=== PATIENT | female | born 1960 | race Caucasian/White ===

== ENCOUNTER 2018-05-14 22:29 | Observation (INO) ==
--- NOTE | 2018-05-14 23:16 | XR ---
EXAM DATE: 05/14/2018 11:13 PM EST AGE/SEX: 57 years / Female INDICATIONS: Chest pain. CLINICAL DATA: This is the patient's initial encounter. Patient reports that signs and symptoms have been present for 1 day and indicates a pain score of 5/10. MEDICAL/SURGICAL HISTORY: Hypertension. None. COMPARISON: No prior exams available for comparison. FINDINGS: Portable AP view of the chest demonstrates a normal-sized cardiac silhouette. No effusion, consolidat ion, or pneumothorax is identified. The bones and soft tissues demonstrate no acute finding. There is calcification of the aorta. EKG lines overlie the patient. CONCLUSION: No acute cardiopulmonary abnormality is identified. Electronically signed by: Shukri Burton MD 05/14/2018 11:15 PM EST
[2018-05-14 23:28] LABS: Baso % (Auto) 0.6 % (0.0-2.0); Eos # (Auto) 0.1 th/mm3 (0.0-0.4); Eos % (Auto) 1.8 % (0.0-4.0); Hematocrit 42.3 % (35.0-46.0); Hemoglobin 14.3 gm/dL (11.6-15.3); Lymph # (Auto) 3.1 th/mm3 (1.0-4.8); Mean Corpuscular HGB Conc 33.9 % (32.0-36.0); Mean Corpuscular Hemoglobin 30.3 pg (27.0-34.0); Mean Corpuscular Volume 89.5 fL (80.0-100.0); Mean Platelet Volume 9.9 fL (7.0-11.0); Mono # (Auto) 0.4 th/mm3 (0.0-0.9); Mono % (Auto) 6.3 % (0.0-8.0); Neut # (Auto) 2.6 th/mm3 (1.8-7.7); Neut % (Auto) 42.3 % (16.0-70.0); Platelet Count 232 th/mm3 (150-450); Red Blood Count 4.72 mil/mm3 (4.00-5.30); Red Cell Distribution Width 13.3 % (11.6-17.2); White Blood Count 6.3 th/mm3 (4.0-11.0)
[2018-05-14] MEDS ORDERED: Morphine Sulfate Inj 2 MG/ML Vial IV.PUSH ONE (23:49)
[2018-05-15 00:42] LABS: Alanine Aminotransferase 59 U/L (10-53); Albumin 3.5 g/dL (3.4-5.0); Anion Gap 5 meq/L (5-15); Aspartate Aminotransferase 23 U/L (15-37); Blood Urea Nitrogen 10 mg/dL (7-18); Calcium 8.4 mg/dL (8.5-10.1); Carbon Dioxide 27.5 meq/L (21.0-32.0); Chloride 111 meq/L (98-107); Glomerular Filtration Rate 88 mL/min (>89); Glucose,Random 102 mg/dL (74-106); Potassium 3.9 meq/L (3.5-5.1); Sodium 143 meq/L (136-145)
[2018-05-15 00:48] LABS: Total Protein 6.5 g/dL (6.4-8.2)
[2018-05-15 00:49] LABS: Alkaline Phosphatase 90 U/L (45-117)
--- NOTE | 2018-05-15 01:29 | ED ---
HPI General Chief Complaint: Chest Pain Stated Complaint: Chest Pain Time Seen by Provider: 05/14/18 22:54 Source: patient Mode of arrival: ambulatory Limitations: no limitations History of Present Illness HPI narrative: 57-year-old female came to the emergency room brought by EMS with history of chest pain that has been on and off for past 1 week. Patient also says that she has been experiencing some anxiety, shortness of breath and dizziness associated with it. Patient describes the chest pain substernal radiating to the back between her shoulder blades and over to both shoulders. She took 2 baby aspirins before calling 911 and received 2 more baby aspirins by EMS. She was given 2 sublingual nitro spray that relieved her chest pain completely. Patient seems anxious as she is telling me the history. Vital signs are stable. She has a significant family history of coronary artery disease. Her the mother had a heart attack when she was about the patient's age and her father has history of coronary artery disease. Patient had a stress test long time back that was negative. Currently she has history of hypertension and high cholesterol. She is not a smoker. No aggravating or relieving symptoms identified for the pain. Related Data Home Medications Medication Instructions Recorded Confirmed lorazepam 0.5 mg PO DAILY 05/14/18 05/14/18 metoprolol tartrate 12.5 mg PO BID 05/14/18 05/14/18 nifedipine 30 mg PO DAILY 05/14/18 05/14/18 pantoprazole 40 mg PO DAILY 05/14/18 05/14/18 simvastatin 40 mg PO QPM 05/14/18 05/14/18 Previous Rx's Medication Instructions Recorded ranitidine HCl [Acid Ip Counsel 150 mg PO DAILY #30 tab 05/15/18 (ranitidine)] Allergies Allergy/AdvReac Type Severity Reaction Status Date / Time Penicillins Allergy Swelling Verified 05/14/18 22:46 Sulfa (Sulfonamide Allergy Swelling Verified 05/14/18 22:46 Antibiotics) Review of Systems ROS: all other systems reviewed are negative [facility] Medical History Medical History Anxiety (Acute) High cholesterol (Acute) Hx of hysterectomy (Acute) Hypertension (Acute) Surgical History Surgical History Hx of cholecystectomy (Acute) Social History Social History Substance History: No History of Abuse Second Hand Smoke Exposure: No Smoking Status: Former smoker Tobacco Type: Cigarettes How Often Do You Have a Drink Containing Alcohol: 2 to 3 times a week Recent Travel in [facility] within the Last 8 Weeks: No Recent Out of Country Travel within the Last 8 Weeks: Yes Immunization History Tetanus Immunization: Unsure Exam Narrative Exam Narrative: GENERAL: Awake, alert, anxious, tearful, moderate distress SKIN: Focused skin assessment warm/dry. HEAD: Atraumatic. Normocephalic. EYES: Pupils equal and round. No scleral icterus. No injection or drainage. ENT: No nasal bleeding or discharge. Mucous membranes pink and moist. NECK: Trachea midline. No JVD. CARDIOVASCULAR: Regular rate and rhythm. No murmur appreciated. RESPIRATORY: No accessory muscle use. Clear to auscultation. Breath sounds equal bilaterally. GASTROINTESTINAL: Abdomen soft, non-tender, nondistended. Hepatic and splenic margins not palpable. MUSCULOSKELETAL: No obvious deformities. No clubbing. No cyanosis. No edema. NEUROLOGICAL: Awake and alert. No obvious cranial nerve deficits. Motor grossly within normal limits. Normal speech. PSYCHIATRIC: Appropriate mood and affect; insight and judgment normal. Course Initial Documented Vital Signs Temperature 98.4 F 05/14/18 22:36 Pulse Rate 71 05/14/18 22:36 Respiratory Rate 20 05/14/18 22:36 Blood Pressure 149/77 H 05/14/18 22:36 Pulse Oximetry 98 05/14/18 22:36 Last Documented Vital Signs Temperature 97.8 F 05/15/18 11:54 Pulse Rate 70 05/15/18 11:54 Respiratory Rate 16 05/15/18 11:54 Blood Pressure 127/70 05/15/18 11:54 Pulse Oximetry 97 05/15/18 11:54 Medical Decision Making MDM Narrative Medical decision making narrative: 1 AM blood test results are back and within acceptable limits. D-dimer and troponin is negative. Patient will be admitted to the chest pain center to rule out ACS. I discussed the results and the plan with the patient and she is agreeable to the admission. Medical Screen Exam Complete: Yes Emergency Medical Condition: Yes Lab Data Result diagrams: 05/14/18 23:00 05/14/18 00:05 Lab Results 05/14/18 05/14/18 05/14/18 Range/Units 00:05 23:00 23:50 WBC 6.3 (4.0-11.0) th/mm3 RBC 4.72 (4.00-5.30) mil/mm3 Hgb 14.3 (11.6-15.3) gm/dL Hct 42.3 (35.0-46.0) % MCV 89.5 (80.0-100.0) fL MCH 30.3 (27.0-34.0) pg MCHC 33.9 (32.0-36.0) % RDW 13.3 (11.6-17.2) % Plt Count 232 (150-450) th/mm3 MPV 9.9 (7.0-11.0) fL Neut % (Auto) 42.3 (16.0-70.0) % Lymph % (Auto) 49.0 H (9.0-44.0) % [place] % (Auto) 6.3 (0.0-8.0) % Eos % (Auto) 1.8 (0.0-4.0) % Baso % (Auto) 0.6 (0.0-2.0) % Neut # (Auto) 2.6 (1.8-7.7) th/mm3 Lymph # (Auto) 3.1 (1.0-4.8) th/mm3 [place] # (Auto) 0.4 (0.0-0.9) th/mm3 Eos # (Auto) 0.1 (0.0-0.4) th/mm3 Baso # (Auto) 0.0 (0.0-0.2) th/mm3 WBC Differential . Differential Comment Auto diff final D-Dimer Quant (PE/DVT) 0.30 (0.00-0.50) mg/L FEU Sodium 143 (136-145) meq/L Potassium 3.9 (3.5-5.1) meq/L Chloride 111 H (98-107) meq/L Carbon Dioxide 27.5 (21.0-32.0) meq/L Anion Gap 5 (5-15) meq/L BUN 10 (7-18) mg/dL Creatinine 0.69 (0.50-1.00) mg/dL Estimated GFR 88 L (>89) mL/min Random Glucose 102 (74-106) mg/dL Calcium 8.4 L (8.5-10.1) mg/dL Total Bilirubin 0.6 (0.2-1.0) mg/dL AST 23 (15-37) U/L ALT 59 H (10-53) U/L Alkaline Phosphatase 90 (45-117) U/L Total Creatine Kinase (26-192) U/L Troponin I Less than 0.02 L (0.02-0.05) ng/mL Total Protein 6.5 (6.4-8.2) g/dL Albumin 3.5 (3.4-5.0) g/dL 05/15/18 05/15/18 Range/Units 01:49 04:15 WBC (4.0-11.0) th/mm3 RBC (4.00-5.30) mil/mm3 Hgb (11.6-15.3) gm/dL Hct (35.0-46.0) % MCV (80.0-100.0) fL MCH (27.0-34.0) pg MCHC (32.0-36.0) % RDW (11.6-17.2) % Plt Count (150-450) th/mm3 MPV (7.0-11.0) fL Neut % (Auto) (16.0-70.0) % Lymph % (Auto) (9.0-44.0) % [place] % (Auto) (0.0-8.0) % Eos % (Auto) (0.0-4.0) % Baso % (Auto) (0.0-2.0) % Neut # (Auto) (1.8-7.7) th/mm3 Lymph # (Auto) (1.0-4.8) th/mm3 [place] # (Auto) (0.0-0.9) th/mm3 Eos # (Auto) (0.0-0.4) th/mm3 Baso # (Auto) (0.0-0.2) th/mm3 WBC Differential Differential Comment D-Dimer Quant (PE/DVT) (0.00-0.50) mg/L FEU Sodium (136-145) meq/L Potassium (3.5-5.1) meq/L Chloride (98-107) meq/L Carbon Dioxide (21.0-32.0) meq/L Anion Gap (5-15) meq/L BUN (7-18) mg/dL Creatinine (0.50-1.00) mg/dL Estimated GFR (>89) mL/min Random Glucose (74-106) mg/dL Calcium (8.5-10.1) mg/dL Total Bilirubin (0.2-1.0) mg/dL AST (15-37) U/L ALT (10-53) U/L Alkaline Phosphatase (45-117) U/L Total Creatine Kinase 61 58 (26-192) U/L Troponin I Less than 0.02 L Less than 0.02 L (0.02-0.05) ng/mL Total Protein (6.4-8.2) g/dL Albumin (3.4-5.0) g/dL Imaging Data Radiologist's impression: Chest X-Ray 05/14/18 22:54 CONCLUSION: No acute cardiopulmonary abnormality is identified. Myocardial Perfusion Scan Nuc Med 05/15/18 00:00 CONCLUSION: 1. Unremarkable myocardial perfusion examination. ECG Data Attestation: I personally reviewed and interpreted this ECG as follows: Interpretation: Twelve-lead EKG was reviewed by me. Normal sinus rhythm, left axis deviation, nonspecific T wave changes. Heart rate of 62 bpm. Discharge Plan Discharge Disposition Patient Disposition: 30 Still Patient Discharge Condition Condition: Stable Discharge Order Discharge Orders: Discharge Order (Routine); Ordered 05/15/18 Ordered By: Theresa Nobles ED Use Only Admit Order (Routine); Ordered 05/15/18 Ordered By: Parth Hernandez Discharge Details Anticipated Discharge Date: 05/15/18 Physicians Team ED Provider: Parth Hernandez Primary Care Provider: UNKNOWN, Attending Provider: Hemant Baxter Status ED Status: Left Department Discharge Information Discharge Date/Time: 05/15/18 02:32
[2018-05-15 03:07] LABS: Creatine Kinase 61 U/L (26-192)
[2018-05-15] MEDS ORDERED: Morphine Inj 4 MG/ML Vial IV.PUSH PRN (03:49)
[2018-05-15] MEDS ORDERED: Acetaminophen 325 MG Tablet PO PRN (03:49)
[2018-05-15 04:49] LABS: Creatine Kinase 58 U/L (26-192)
--- NOTE | 2018-05-15 08:10 | P.HPCA ---
History of Present Illness Service: Chest pain center Primary Care Physician: UNKNOWN Primary care physician is in [facility] Chief Complaint: Shortness of breath nausea and chest pressure History of Present Illness: 57-year-old snowbird from [place] began to notice indigestion nausea and diarrhea about a week prior to admission. Along with this she began to experience some shortness of breath dizziness and chest discomfort which she describes as predominantly substernal squeezing sensation lasting about 30 minutes to an hour relieved by lorazepam and occurring 1 or 2 times a day. The severity is up to 6 out of 10. Associated she feels anxious short of breath dizzy and nauseated. There are no precipitating events however nitroglycerin spray in transit did provide good relief. Patient does have a history of irritable bowel syndrome and of anxiety. She is particularly concerned because her mother experienced a heart attack at about her age and of heart disease at age 69. Her father is living at 80 but also has coronary disease. She is a past smoker but quit about a year ago after 36+ pack years history - Diagnosis (1) Chest pain (2) Hypertension (3) Hyperlipidemia (4) GERD (gastroesophageal reflux disease) (5) IBS (irritable bowel syndrome) (6) Anxiety (7) History of tobacco abuse Review of Systems All other systems reviewed negative except as stated in HPI PMFSH - History History Provided By: Patient - Medical History Medical History: Medical History (Last Reviewed 05/15/18 @ 01:28 by Parth Hernandez MD) Anxiety High cholesterol Hx of hysterectomy Hypertension - Surgical History Surgical History: Surgical History (Last Reviewed 05/15/18 @ 01:28 by Parth Hernandez MD) Hx of cholecystectomy - Tobacco History Second Hand Smoke Exposure: No Tobacco Use In Past 30 Days: No Smoking Status: Former smoker Tobacco Type: Cigarettes - Alcohol History How Often Do You Have a Drink Containing Alcohol: 2 to 3 times a week - Substance Use History Substance History: No History of Abuse - Travel History Recent Travel in the [place] Within the Last 8 Weeks: No Recent Travel Out of the Country Within the Last 8 Weeks: Yes - Immunization History Tetanus Immunization: Unsure Medications and Allergies Active Medications: Active Medications Acetaminophen (Tylenol) 650 mg PO Q6H PRN PRN Reason: HEADACHE Morphine Sulfate (Morphine Inj) 2 mg IV.PUSH UNSCH X1 PRN PRN Reason: FOR PAIN > 5 Stop: 05/15/18 09:00 Last Admin: 05/15/18 04:33 Dose: 2 mg Sodium Chloride (Ns Flush) 2 ml IV.FLUSH UNSCH PRN PRN Reason: FLUSH AFTER USING IV ACCESS Sodium Chloride (Ns Flush) 2 ml IV.FLUSH BID SOURAV Sodium Chloride (Ns Flush) 2 ml IV.FLUSH PRN PRN PRN Reason: FLUSH AFTER USING IV ACCESS Allergies Allergy/AdvReac Type Severity Reaction Status Date / Time Penicillins Allergy Swelling Verified 05/14/18 22:46 Sulfa (Sulfonamide Allergy Swelling Verified 05/14/18 22:46 Antibiotics) Home Medications Medication Instructions Recorded Confirmed Type lorazepam 0.5 mg PO DAILY 05/14/18 05/14/18 History metoprolol tartrate 12.5 mg PO BID 05/14/18 05/14/18 History nifedipine 30 mg PO DAILY 05/14/18 05/14/18 History pantoprazole 40 mg PO DAILY 05/14/18 05/14/18 History simvastatin 40 mg PO QPM 05/14/18 05/14/18 History Exam Vital signs: Vital Signs 05/14/18 22:36 05/14/18 22:55 05/14/18 22:56 Temperature 98.4 F Pulse Rate 71 69 66 Respiratory Rate 20 16 Blood Pressure 149/77 H 136/80 Pulse Oximetry 98 97 97 05/15/18 02:02 05/15/18 04:00 Temperature 97.8 F Pulse Rate 68 61 Respiratory Rate 16 18 Blood Pressure 146/83 H 110/72 Pulse Oximetry 97 97 Intake & Output 05/14/18 05/15/18 05/15/18 18:59 06:59 18:59 Weight 75.3 kg Other: # Voids 1 Narrative: Well-nourished well-developed woman initially resting comfortably but as noted by the ED physician and seemed very anxious once I entered the room Skin warm and dry Head normocephalic atraumatic hair normal texture and distribution Eyes PERRLA EOMI sclera clear sclera clear conjunctiva slightly injected Mouth mucous membranes moist and well papillated edentulous lower but no lesions Neck supple no JVD masses nodes or bruits Chest clear to auscultation with no rales wheezes or rhonchi Cardiovascular regular sinus rhythm no gallops rubs or murmurs Abdomen soft nontender no guarding or rebound no hepatosplenomegaly Extremities no clubbing cyanosis or edema pulses are intact Neurologic cranial nerves are intact memory seems intact motor is equal upper and lower extremities Psychologic patient does exclude certain amount of anxiety Results 05/14/18 23:00 05/14/18 00:05 Cardiac Enzymes 05/14/18 05/15/18 05/15/18 Range/Units 00:05 01:49 04:15 AST 23 (15-37) U/L Troponin I Less than 0.02 L Less than 0.02 L Less than 0.02 L (0.02-0.05) ng/mL CBC 05/14/18 Range/Units 23:00 WBC 6.3 (4.0-11.0) th/mm3 RBC 4.72 (4.00-5.30) mil/mm3 Hgb 14.3 (11.6-15.3) gm/dL Hct 42.3 (35.0-46.0) % Plt Count 232 (150-450) th/mm3 Neut # (Auto) 2.6 (1.8-7.7) th/mm3 Lymph # (Auto) 3.1 (1.0-4.8) th/mm3 [place] # (Auto) 0.4 (0.0-0.9) th/mm3 Eos # (Auto) 0.1 (0.0-0.4) th/mm3 Baso # (Auto) 0.0 (0.0-0.2) th/mm3 Comprehensive Metabolic Panel 05/14/18 Range/Units 00:05 Sodium 143 (136-145) meq/L Potassium 3.9 (3.5-5.1) meq/L Chloride 111 H (98-107) meq/L Carbon Dioxide 27.5 (21.0-32.0) meq/L BUN 10 (7-18) mg/dL Creatinine 0.69 (0.50-1.00) mg/dL Calcium 8.4 L (8.5-10.1) mg/dL AST 23 (15-37) U/L ALT 59 H (10-53) U/L Alkaline Phosphatase 90 (45-117) U/L Total Protein 6.5 (6.4-8.2) g/dL Albumin 3.5 (3.4-5.0) g/dL Intake and Output 05/14/18 05/15/18 05/15/18 22:59 06:59 14:59 Other: # Voids 1 Weight 74.843 kg 75.3 kg - Imaging and Cardiology Imaging: Impressions Chest X-Ray 05/14/18 22:54 CONCLUSION: No acute cardiopulmonary abnormality is identified. Caprini VTE Risk Assessment Caprini VTE Risk Assessment: No/Low Risk (score <= 1) Caprini Risk Assessment Model: Point Value = 1 Point Value = 2 Point Value = 3 Point Value = 5 Age 41-60 Minor surgery BMI > 25 kg/m2 Swollen legs Varicose veins or History of unexplained or recurrent spontaneous Oral contraceptives or hormone replacement Sepsis (< 1 month) Serious lung disease, including pneumonia (< 1 month) Abnormal pulmonary function Acute myocardial infarction Congestive heart failure (< 1 month) History of inflammatory bowel disease Medical patient at bed rest Age 61-74 Arthroscopic surgery Major open surgery (> 45 min) Laparoscopic surgery (> 45 min) Malignancy Confined to bed (> 72 hours) Immobilizing plaster cast Central venous access Age >= 75 History of VTE Family history of VTE Factor V Leiden Prothrombin [id number] Lupus anticoagulant Anticardiolipin antibodies Elevated serum homocysteine Heparin-induced thrombocytopenia Other congenital or acquired thrombophilia Stroke (< 1 month) Elective arthroplasty Hip, pelvis, or leg fracture Acute spinal cord injury (< 1 month) Prophylaxis Regimen: Total Risk Factor Score Risk Level Prophylaxis Regimen 0-1 Low Early ambulation 2 Moderate Order ONE of the following: *Sequential Compression Device (SCD) *Heparin 5000 units SQ BID 3-4 Higher Order ONE of the following medications: *Heparin 5000 units SQ TID *Enoxaparin/Lovenox 40 mg SQ daily (WT < 150 kg, CrCl > 30 mL/min) *Enoxaparin/Lovenox 30 mg SQ daily (WT < 150 kg, CrCl > 10-29 mL/min) *Enoxaparin/Lovenox 30 mg SQ BID (WT < 150 kg, CrCl > 30 mL/min) AND/OR *Sequential Compression Device (SCD) 5 or more Highest Order ONE of the following medications: *Heparin 5000 units SQ TID (Preferred with Epidurals) *Enoxaparin/Lovenox 40 mg SQ daily (WT < 150 kg, CrCl > 30 mL/min) *Enoxaparin/Lovenox 30 mg SQ daily (WT < 150 kg, CrCl > 10-29 mL/min) *Enoxaparin/Lovenox 30 mg SQ BID (WT < 150 kg, CrCl > 30 mL/min) AND *Sequential Compression Device (SCD) Assessment and Plan - Assessment (1) Chest pain Code(s): R07.9 - Chest pain, unspecified Status: Acute Plan: Patient has ruled out for ACS and is capable of walking. She has an atypical presentation with nausea diarrhea dizziness and shortness of breath but still needs to be ruled out due to her underlying risk factors. She also has a significant amount of anxiety which could be causative or secondary. Plan is to obtain an exercise stress test. If negative she will be discharged to further follow-up on an outpatient basis if positive a cardiac referral will be placed (2) Hypertension Code(s): I10 - Essential (primary) hypertension Status: Acute Plan: Continue present medications with caution regarding dietary discretion particularly regarding salt (3) Hyperlipidemia Code(s): E78.5 - Hyperlipidemia, unspecified Status: Acute Plan: Continued lifestyle modification (4) GERD (gastroesophageal reflux disease) Code(s): K21.9 - Gastro-esophageal reflux disease without esophagitis Status: Acute Plan: Recommendation for outpatient evaluation by shirt line operator (5) IBS (irritable bowel syndrome) Code(s): K58.9 - Irritable bowel syndrome without diarrhea Status: Acute Plan: Recommended outpatient follow-up with shirt line operator (6) Anxiety Code(s): F41.9 - Anxiety disorder, unspecified Status: Acute Plan: Needs to discuss this problem with her primary care physician on return to [place] (7) History of tobacco abuse Code(s): Z87.891 - Personal history of nicotine dependence Status: Acute H&P: Quality - VTE Deep Vein Thrombosis/Pulmonary Embolism Present on Admission: No
[2018-05-15] MEDS ORDERED: Metoprolol Tartrate 25 MG Tablet PO SCH (09:30)
[2018-05-15] MEDS ORDERED: Regadenoson Inj 0.4 MG/5 ML Syringe IV.PUSH ONE (10:50)
--- NOTE | 2018-05-15 11:18 | ECG ---
Date Performed: 05/15/2018 Time Performed: 04:16:23 PTAGE: 57 years EKG: Sinus rhythm POSSIBLE LEFT ATRIAL ENLARGEMENT BORDERLINE ECG NO PREVIOUS TRACING DOCTOR: Hemant Baxter Interpretating Date/Time 05/15/2018 11:16:38
--- NOTE | 2018-05-15 11:19 | ECG ---
Date Performed: 05/15/2018 Time Performed: 02:07:45 PTAGE: 57 years EKG: Sinus rhythm POSSIBLE LEFT ATRIAL ENLARGEMENT BORDERLINE ECG NO PREVIOUS TRACING DOCTOR: Hemant Baxter Interpretating Date/Time 05/15/2018 11:17:42
--- NOTE | 2018-05-15 11:20 | ECG ---
Date Performed: 05/14/2018 Time Performed: 22:53:39 PTAGE: 57 years EKG: Sinus rhythm POSSIBLE LEFT ATRIAL ENLARGEMENT BORDERLINE ECG NO PREVIOUS TRACING DOCTOR: Hemant Baxter Interpretating Date/Time 05/15/2018 11:18:31
[2018-05-15 11:57] VITALS: BP 127/70; PULSE 70; RESP 16; TEMP 97.8; O2SAT 97
--- NOTE | 2018-05-15 12:33 | NM ---
EXAM DATE: 05/15/2018 12:26 PM EST AGE/SEX: 57 years / Female INDICATIONS:Angina. . Angina. CLINICAL DATA: This is the patient's initial encounter. Patient reports that signs and symptoms have been present for 1 day and indicates a pain score of 4/10. MEDICAL/SURGICAL HISTORY: Hypertension. Hypercholesterolemia. Cholecystectomy. Hysterectomy. Tubal ligation. COMPARISON: No prior exams available for comparison. DOSE: 8.6 mCi Tc 99m Myoview at rest 27.2 mCi [id number] at stress 0.4 mg Lexiscan STRESS SYMPTOMS: Heart racing. EJECTION FRACTION: >70 % TECHNIQUE: The patient underwent pharmacologic stress with infusion of prescribed dose. Continuous ECG tracing was monitored during stress. Gated SPECT imaging was performed after stress and conventi onal SPECT imaging was performed at rest. The examination was performed on a SPECT/CT scanner, both attenuation and non-corrected datasets were reviewed. FINDINGS: Distribution: The maximum perfused segment at stress is in the inferior wall. Perfusion Study: The pattern of perfusion at stress is within normal limits. Gated Study: There are intact wall motion and wall thickening without hypokinetic or dyskinetic segm ents. The ejection fraction is calculated at >70%. RISK CATEGORY: Low (<1% Annual Motality Rate) CONCLUSION: 1. Unremarkable myocardial perfusion examination. Electronically signed by: Raghav Ryan MD 05/15/2018 12:32 PM EST
--- NOTE | 2018-05-16 15:49 | TR ---
Date Performed: 05/15/2018 Time Performed: 10:38:59 DOCTOR: Jesus Regalado DRUG LIST: CLINICAL HISTORY: REASON FOR TEST: Angina REASON FOR ENDING: OBSERVATION: CONCLUSION: COMMENTS: Lexiscan stress test was performed under standard four minute protocol. Radionuclide was injected one minute prior to ending the test. No electrocardiographic abormalities were present t o suggest ischemia. Nuclear imaging and interpretation are pending.
== END 2018-05-15 14:26 | disposition home or self-care (01) ==
LOC: NEDA 22:29 → NEPC 22:29 → NEPHCDU 05-15 02:29
PROVIDERS: ADMIT Internal Medicine Interventional Cardiology; ATTEND Internal Medicine Interventional Cardiology